=== PATIENT | male | born 2000 ===

== ENCOUNTER 2018-12-17 09:18 | Emergency (ER) | payer SELFPAY ==
[2018-12-17] MEDS ORDERED: Lidocaine 1% w/Epinephrine 1:100K 20 ML VIAL ONE (10:34)
[2018-12-17] MEDS ORDERED: Adacel (T-DAP) 0.5 ML SYRINGE ONE (11:11)
[2018-12-17] MEDS ORDERED: HYDROcodone/Acetaminophen 10/325 mg Tablet ONE (12:37)
== END 2018-12-17 17:03 | disposition home or self-care (01) ==
LOC: ERS 09:18
DX: L05.01 Pilonidal cyst with abscess (principal)
CPT/HCPCS: 10080; 90471; 90715; J2001